=== PATIENT | female | born 1960 | race Caucasian/White ===

== ENCOUNTER 2018-06-25 06:31 | Emergency (ER) | payer BC ==
[2018-06-25] MEDS ORDERED: Ondansetron 4 MG/2 ML SDV IV ONE (06:36)
[2018-06-25] MEDS ORDERED: Sodium Chloride 0.9% 1,000 ML IV ONE (06:36)
[2018-06-25] MEDS ORDERED: Ketorolac 30 MG/ML SDV IVPUSH ONE (07:09)
--- NOTE | 2018-06-25 07:17 | EDM.PDOC ---
ED HPI GENERAL MEDICAL PROBLEM - General Chief Complaint: Flank Pain Stated Complaint: ? KIDNEY STONE Time Seen by Provider: 06/25/18 07:02 Source of Information: Reports: Patient History Limitations: Reports: No Limitations - History of Present Illness INITIAL COMMENTS - FREE TEXT/NARRATIVE: This 57 yo female patient reports to the ED with right flank pain. The patient reports her pain started last evening, but became unbearable at 0400 this morning. The patient reports a past history of kidney stones and has had lithotripsy. The patient has not taken anything for temporary symptom relief at this time. Onset Date: 06/24/18 Duration: Constant, Getting Worse Location: Reports: Back (right flank) Quality: Reports: Ache, Sharp, Stabbing Severity: Moderate Improves with: Reports: None Worsens with: Reports: None Context: Reports: Other Associated Symptoms: Reports: Other Right Flank Pain Score (Numeric/FACES): 7 - Related Data Allergies Allergy/AdvReac Type Severity Reaction Status Date / Time Sulfa (Sulfonamide Allergy Rash Verified 06/25/18 06:42 Antibiotics) Home Meds: Home Meds Levothyroxine 125 mcg PO DAILY 06/25/18 [History] Past Medical History HEENT History: Reports: Impaired Vision Gastrointestinal History: Reports: Cholelithiasis Endocrine/Metabolic History: Reports: Hypothyroidism - Past Surgical History GI Surgical History: Reports: Appendectomy, Hernia Repair/Other Female Surgical History: Reports: Tubal Ligation Social & Family History - Tobacco Use Smoking Status *Q: Current Every Day Smoker Years of Tobacco use: 35 Packs/Tins Daily: 1 - Caffeine Use Caffeine Use: Reports: Soda - Recreational Drug Use Recreational Drug Use: No ED ROS GENERAL - Review of Systems Review Of Systems: ROS reveals no pertinent complaints other than HPI. ED EXAM, RENAL/ - Physical Exam Exam: See Below Exam Limited By: No Limitations General Appearance: Alert, WD/WN, Moderate Distress Eye Exam: Bilateral Eye: EOMI, Normal Inspection, PERRL Ears: Normal External Exam, Normal Canal, Hearing Grossly Normal, Normal TMs Nose: Normal Inspection, Normal Mucosa, No Blood Throat/Mouth: Normal Inspection, Normal Lips, Normal Teeth, Normal Gums, Normal Oropharynx, Normal Voice, No Airway Compromise Head: Atraumatic, Normocephalic Neck: Normal Inspection, Supple, Non-Tender, Full Range of Motion Respiratory/Chest: No Respiratory Distress, Lungs Clear, Normal Breath Sounds, No Accessory Muscle Use, Chest Non-Tender Cardiovascular: Normal Peripheral Pulses, Regular Rate, Rhythm, No Edema, No Gallop, No JVD, No Murmur, No Rub GI/Abdominal: Normal Bowel Sounds, Soft, Non-Tender, No Organomegaly, No Distention, No Abnormal Bruit, No Mass (Female) Exam: Deferred Rectal (Female) Exam: Deferred Back Exam: CVA Tenderness (R) Extremities: Normal Inspection, Normal Range of Motion, Non-Tender, Normal Capillary Refill, No Pedal Edema Neurological: Alert, Oriented, CN II-XII Intact, Normal Cognition, Normal Gait, Normal Reflexes, No Motor/Sensory Deficits Psychiatric: Normal Affect, Normal Mood Skin Exam: Warm, Dry, Intact, Normal Color, No Rash Lymphatic: No Adenopathy Course - Vital Signs Last Recorded V/S: Last Vital Signs Temp 36.2 C 06/25/18 06:35 Pulse 87 06/25/18 06:35 Resp 18 06/25/18 06:35 BP 168/77 H 06/25/18 06:35 Pulse Ox 98 06/25/18 06:35 - Orders/Labs/Meds Orders: Active Orders 24 hr Category Date Time Status Abdomen Pelvis wo Cont [CT] Urgent Exams 06/25/18 07:09 Ordered CULTURE URINE [RM] Stat Lab 06/25/18 06:35 Received Labs: Laboratory Tests 06/25/18 06/25/18 06/25/18 Range/Units 06:35 06:44 06:44 WBC 10.1 H (5.0-10.0) 10^3/uL RBC 4.60 (4.2-5.4) 10^6/uL Hgb 13.5 (12.0-16.0) g/dL Hct 41.5 (37.0-47.0) % MCV 90.2 (80-100) fL MCH 29.3 (27.0-34.0) pg MCHC 32.5 L (33.0-35.0) g/dL Plt Count 300 (150-450) 10^3/uL Neut % (Auto) 83.7 H (42.2-75.2) % Lymph % (Auto) 9.0 L (20.5-50.1) % Payne % (Auto) 5.4 (2-8) % Eos % (Auto) 1.4 (1.0-3.0) % Baso % (Auto) 0.5 (0.0-1.0) % Sodium 138 (135-145) mmol/L Potassium 4.0 (3.6-5.0) mmol/L Chloride 106 (101-111) mmol/L Carbon Dioxide 23.0 (21.0-31.0) mmol/L Anion Gap 13.0 BUN 21 H (7-18) mg/dL Creatinine 0.9 (0.6-1.3) mg/dL Est Cr Clr Drug Dosing 67.87 mL/min Estimated GFR (MDRD) > 60 BUN/Creatinine Ratio 23.33 Glucose 108 H (74-105) mg/dL Calcium 8.9 (8.4-10.2) mg/dl Total Bilirubin 0.5 (0.2-1.0) mg/dL AST 21 (10-42) IU/L ALT 14 (10-60) IU/L Alkaline Phosphatase 104 (42-121) IU/L Total Protein 7.3 (6.7-8.2) g/dl Albumin 4.1 (3.2-5.5) g/dl Globulin 3.2 Albumin/Globulin Ratio 1.28 Amylase 39 (28-100) U/L Lipase 15 L (22-51) U/L Urine Color Yellow (YELLOW) Urine Appearance Cloudy (CLEAR) Urine pH 6.0 (5.0-9.0) Ur Specific Oliver >= 1.030 (1.005-1.030) Urine Protein 30 H (NEGATIVE) Urine Glucose (UA) Negative (NEGATIVE) Urine Ketones Negative (NEGATIVE) Urine Occult Blood Moderate H (NEGATIVE) Urine Nitrite Negative (NEGATIVE) Urine Bilirubin Negative (NEGATIVE) Urine Urobilinogen 0.2 (0.2-1.0) mg/dL Ur Leukocyte Esterase Small H (NEGATIVE) Urine RBC 5-10 H /HPF Urine WBC Packed H (0-5/HPF) /HPF Ur Epithelial Cells Many H /HPF Calcium Oxalate Crystal Rare /HPF Amorphous Sediment Rare (0/HPF) /HPF Urine Bacteria Few (0-FEW/HPF) /HPF Fine Granular Casts Few H (0/LPF) /LPF Urine Mucus Few H /LPF Meds: Medications Discontinued Medications Generic Name Dose Route Start Last Admin Trade Name Freq PRN Reason Stop Dose Admin Sodium Chloride 1,000 mls @ 999 mls/hr 06/25/18 06:36 06/25/18 06:46 Normal Saline IV 06/25/18 07:36 999 mls/hr .BOLUS ONE Administration Ketorolac Tromethamine 30 mg 06/25/18 07:09 06/25/18 07:20 Toradol IVPUSH 06/25/18 07:10 30 mg ONETIME ONE Administration Ondansetron HCl 4 mg 06/25/18 06:36 06/25/18 06:46 Zofran IV 06/25/18 06:37 4 mg ONETIME ONE Administration Tamsulosin HCl 0.4 mg 06/25/18 07:54 Flomax PO 06/25/18 07:55 ONETIME ONE Departure - Departure Time of Disposition: 07:58 Disposition: Home, Self-Care 01 Condition: Fair Clinical Impression: Kidney stone on right side - Discharge Information Instructions: Kidney Stones, [id number] Forms: ED Department Discharge Care Plan Goals: The patient was advised of the examination, lab and CT results during the visit. The patient was given a liter of IV fluid, IV Zofran, IV Toradol and an oral dose of Flomax while in the ED. The patient was discharged with a script for Toradol (10 mg) #20 to take 1 by mouth every 6 hours and Flomax (0.4 mg) # 14 to take 1 by mouth daily. If the patient has any additional symptoms or concerns, the patient should either return to the emergency department or visit her primary care facility. - My Orders Last 24 Hours: My Active Orders 06/25/18 07:09 Abdomen Pelvis wo Cont [CT] Urgent - Assessment/Plan Last 24 Hours: My Active Orders 06/25/18 07:09 Abdomen Pelvis wo Cont [CT] Urgent
[2018-06-25 07:18] LABS: CHLORIDE,CL 106 mmol/L (101-111); SODIUM,NA 138 mmol/L (135-145)
[2018-06-25] MEDS ORDERED: Tamsulosin 0.4 MG Cap.ER PO ONE (07:54)
== END 2018-06-25 08:17 | disposition home or self-care (01) ==
LOC: DL.ED 06:31
DX: N13.2 Hydronephrosis with renal and ureteral calculous obstruction (principal); E03.9 Hypothyroidism, unspecified; F17.210 Nicotine dependence, cigarettes, uncomplicated; Z88.2 Allergy status to sulfonamides; Z79.899 Other long term (current) drug therapy
CPT/HCPCS: 36415; 74176; 80053; 81001; 82150; 83690; 85025; 87086; 96361; 96374; 96375; 99284-25; A9270-GY; J1885; J2405; J7030